=== PATIENT | male | born 1965 | race Caucasian/White ===

== ENCOUNTER → 2023-02-17 11:08 | Outpatient (CLI) | payer BC, SELFPAY | PROVIDERS: PCP Nurse Practitioner Family; Visit Provider Specialist | DX: G47.00 Insomnia, unspecified (principal) | CPT/HCPCS: 94762 ==

== ENCOUNTER → 2023-03-04 14:40 | Outpatient (CLI) | payer BC, SELFPAY | PROVIDERS: PCP Family Medicine; Visit Provider Specialist | DX: G47.33 Obstructive sleep apnea (adult) (pediatric) (principal) | CPT/HCPCS: G0399 ==

== ENCOUNTER → 2023-03-23 11:00 | Outpatient (CLI) | payer BC, SELFPAY ==
[2023-03-23 14:18] LABS: Basophils % 0.4 % (0.1-2.0); Eosinophils # 0.1 K/mm3 (0.0-0.4); Eosinophils % 0.9 % (0.1-12.0); Hematocrit 47.3 % (42.0-52.0); Lymphocytes # 1.4 K/mm3 (0.7-4.5); Lymphocytes % 17.1 % (10-50); Mean Corpuscular HGB Conc 33.7 g/dL (31.8-35.4); Mean Corpuscular Hemoglobin 29.2 pg (27.0-31.2); Mean Corpuscular Volume 86.4 fl (80-94); Mean Platelet Volume 8.8 fl (7.4-10.4); Monocytes # 0.5 K/mm3 (0.1-1.0); Monocytes % 5.5 % (1.7-9.3); Neutrophils # 6.3 K/mm3 (1.8-7.8); Neutrophils % 76.2 % (37.0-80.0); Platelet Count 200 K/mm3 (142-424); Red Blood Count 5.48 M/mm3 (4.60-6.20); Red Cell Distribution Width 14.6 % (11.5-17.5); White Blood Count 8.3 K/mm3 (4.8-10.8)
[2023-03-23 14:54] LABS: Alanine Aminotransferase 26 U/L (12-78); Albumin Level 4.2 g/dl (3.5-5.0); Anion Gap 12.5 mEq/L (5-15); Aspartate Amino Transferase 29 U/L (17-59); Bilirubin,Total 0.9 mg/dl (0.2-1.3); Blood Urea Nitrogen 17 mg/dl (9-20); Calcium 9.2 mg/dl (8.4-10.2); Carbon Dioxide 25 mmol/L (22.0-30.0); Chloride 104 mmol/L (98-107); Estimated Glomerular Filt Rate 99 ml/min (>60); GFR (African American) 120 ML/MIN (>60); Globulin 3.2 g/dL (1.3-3.2); Glucose 86 mg/dl (74-100); Potassium 4.5 mmoL/L (3.5-5.1); Sodium 137 mmol/L (136-145); Total Protein,Serum 7.4 g/dl (6.3-8.2)
[2023-03-23 14:55] LABS: Albumin/Globulin Ratio 1.3 (1.1-1.8); Alkaline Phosphatase 76 U/L (38-126); Chol/HDL Ratio 4.4 (1-3.5); Cholesterol 197 mg/dl (140-200); HDL Cholesterol 45 mg/dl (40-60); Triglycerides 77 mg/dl (30-150); VLDL Cholesterol 15 mg/dL (0-40)
[2023-03-23 15:05] LABS: Direct LDL Cholesterol 126.08 mg/dL (100-129)
[2023-03-23 15:10] LABS: 25-OH Vitamin D, Total 16.9 ng/mL (30-100)
[2023-03-23 15:25] LABS: Thyroid Stimulating Hormone 0.59 uIU/mL (0.465-4.68)
[2023-03-23 15:41] LABS: Erythrocyte Sedimentation Rate 8 mm/hr (0-20)
[2023-03-23 16:31] LABS: Hemoglobin A1C 6.2 % (4.0-6.0)
== END ==
PROVIDERS: PCP Emergency Medicine; Visit Provider Emergency Medicine
DX: E11.9 Type 2 diabetes mellitus without complications (principal); E55.9 Vitamin D deficiency, unspecified; I10 Essential (primary) hypertension; Z79.4 Long term (current) use of insulin; Z79.899 Other long term (current) drug therapy
CPT/HCPCS: 80053; 80061; 82306; 83036; 84439; 84443; 85025; 85651

== ENCOUNTER → 2023-03-23 11:27 | Outpatient (CLI) | payer BC, SELFPAY | PROVIDERS: PCP Emergency Medicine; Visit Provider Emergency Medicine | DX: E55.9 Vitamin D deficiency, unspecified (principal) ==

== ENCOUNTER → 2023-08-04 23:56 | Outpatient (CLI) | payer BC, SELFPAY ==
[2023-08-04 19:14] LABS: Alanine Aminotransferase 28 U/L (12-78); Albumin Level 3.7 g/dl (3.5-5.0); Albumin/Globulin Ratio 1.2 (1.1-1.8); Alkaline Phosphatase 92 U/L (38-126); Anion Gap 13.1 mEq/L (5-15); Aspartate Amino Transferase 27 U/L (17-59); Bilirubin,Total 0.5 mg/dl (0.2-1.3); Blood Urea Nitrogen 15 mg/dl (9-20); Calcium 9.2 mg/dl (8.4-10.2); Carbon Dioxide 26 mmol/L (22.0-30.0); Chloride 104 mmol/L (98-107); Estimated Glomerular Filt Rate 116 ml/min (>60); GFR (African American) 140 ML/MIN (>60); Globulin 3.2 g/dL (1.3-3.2); Glucose 75 mg/dl (74-100); Potassium 4.1 mmoL/L (3.5-5.1); Sodium 139 mmol/L (136-145); Total Protein,Serum 6.9 g/dl (6.3-8.2)
[2023-08-04 19:48] LABS: Basophils % 0.4 % (0.1-2.0); Eosinophils # 0.2 K/mm3 (0.0-0.4); Eosinophils % 2.7 % (0.1-12.0); Hematocrit 48.5 % (42.0-52.0); Hemoglobin 15.6 g/dL (14.1-18.0); Lymphocytes # 2.2 K/mm3 (0.7-4.5); Lymphocytes % 27.9 % (10-50); Mean Corpuscular HGB Conc 32.1 g/dL (31.8-35.4); Mean Corpuscular Hemoglobin 28.4 pg (27.0-31.2); Mean Corpuscular Volume 88.4 fl (80-94); Mean Platelet Volume 9.4 fl (7.4-10.4); Monocytes # 0.5 K/mm3 (0.1-1.0); Monocytes % 6.3 % (1.7-9.3); Neutrophils % 62.8 % (37.0-80.0); Platelet Count 165 K/mm3 (142-424); Red Blood Count 5.48 M/mm3 (4.60-6.20); Red Cell Distribution Width 14.4 % (11.5-17.5); White Blood Count 7.9 K/mm3 (4.8-10.8)
[2023-08-05 10:58] LABS: Hemoglobin A1C 5.7 % (4.0-6.0)
== END ==
PROVIDERS: PCP Family Medicine; Visit Provider Family Medicine
DX: E11.9 Type 2 diabetes mellitus without complications (principal); Z79.4 Long term (current) use of insulin
CPT/HCPCS: 80053; 83036; 85025

== ENCOUNTER 2023-08-24 10:23 | Day surgery (SDC) | payer BC, SELFPAY ==
[2023-08-19 12:43] VITALS: BMI 28.7
--- NOTE | 2023-08-19 12:46 | SUR.PREOP ---
Instructed by pt to call his sister, Jeanette Major, for the pre-op phone call. spoke with sister and had lots of questions and confusion about the procedure and prep, said didn't have a prep or any written instructions. Described and explained in detail how to take prep and dietary restrictions. Pt takes Eloquis and had not been instructed by MD when/if to stop. Instructed sister to call prescribing MD- Dr. Newell- to ask when should hold medication, verbalized understanding. TC to MO in Dr. Justin's office to call in prep for pt.
[2023-08-24 10:42] VITALS: BP 147/90; PULSE 62; RESP 18; TEMP 36.2; O2SAT 98
[2023-08-24 10:55] LABS: POC Glucose,Bedside 91 (70-110)
--- NOTE | 2023-08-24 10:57 | EXP.ANES.CKL ---
[facility] Disclaimer: The information contained in this section may have been updated after the patient was seen, as this information can be updated by other users. Medical History Anxiety Depression Diabetes Sleep apnea Surgical History (Updated 08/24/23 @ 10:41 by John Viramontes RN) No history of previous surgery Family History Other Cancer Social History Smoking Status: Never smoker alcohol intake: never substance use type: denies use current occupational status: employed and retired Travel in the last 8 weeks: None housing: house marital status: single [facility] Anesthesia Checklist Patient Identification Patient Identification: Arm Band Structural Data Admitted From: Home Planned Operative Procedure/s: Colonoscopy Consent for Planned Operative Procedure(s) Verified: Yes Verified Documents: Surgical Consent and History and Physical NPO Status Verified Time NPO: 00:00 Additional verifications Anesthesia Reactions: No Airway Assessment Mallampati Score:: Class II C-Spine Mobility Assessed: Yes TMJ Mobility Assessed: Yes Dentition: Good Dentition Neurological Assessment Level of Consciousness: Awake and Alert Anesthesia Plan Anesthesia Risk discussed: Yes Anesthesia Plan: Verified ASA Class: III Anesthesia Type: MAC
[2023-08-24 11:50] VITALS: BP 124/73; PULSE 67; RESP 17; TEMP 36.2; O2SAT 94
--- NOTE | 2023-08-24 11:59 | HMH.SCOPE ---
Procedure: Date: 08/24/23 Patient Date of :: 1965 Procedure Performed:: Colonoscopy with polypectomy Indications:: Screening Performing Provider:: Scotty Justin MD Referring Provider:: . Sedation:: Monitored anesthesia care Procedure:: After informed consent was obtained the patient was taken to the endoscopy suite. Sedation ensued after the patient was transferred to the left lateral decubitus position. Pulse, blood pressure, and oxygen saturation were monitored throughout the procedure. Digital rectal exam revealed no significant abnormality. The colonoscope was placed in position. The entire colon was evaluated. The colonoscope was carefully removed and the patient was transferred to recovery in stable condition. Please see findings and specimens below for detail. Findings:: Bowel preparation moderate Sigmoid diverticulosis Complex polyps (see specimens) Specimens:: Large lobulated sessile polyp at 65 cm (hot snare and tattoo) Polyp at 35 cm (hot snare) Perianal margin polyps versus lobulated tags (multiple biopsies via cold biopsy forceps) Recommendations:: Follow-up pathology Repeat colonoscopy timing pending results of pathology but likely be around 3-6 months for reevaluation of complex polyp/tattoo site. Complications:: No immediate Estimated blood obtained (mL): 1 Colonoscopy Component Colonoscopy Component Was a colonoscopy performed during today's procedure?: Yes Recommended follow up colonoscopy of at least 10 years?: No If no, follow up colonoscopy recommended in ___ years?: (See above) Reason for not recommending >/= 10 yr follow-up interval?: (See above)
[2023-08-24 12:00] VITALS: BP 130/78; PULSE 69; RESP 19; O2SAT 96
[2023-08-24 12:10] VITALS: BP 136/82; PULSE 59; RESP 17; O2SAT 96
[2023-08-24 12:20] VITALS: BP 127/82; PULSE 59; RESP 17; O2SAT 98
== END 2023-08-24 12:30 | disposition home or self-care (01) ==
PROVIDERS: PCP Family Medicine; Visit Provider Surgery
PROC: 0DJD8ZZ Inspection of Lower Intestinal Tract, Via Natural or Artificial Opening Endoscopic (ICD-10-PCS; CPT 45385; principal; 2023-08-24 11:30)
DX: Z12.11 Encounter for screening for malignant neoplasm of colon (principal); K57.30 Diverticulosis of large intestine without perforation or abscess without bleeding; D12.4 Benign neoplasm of descending colon; D12.5 Benign neoplasm of sigmoid colon; K62.89 Other specified diseases of anus and rectum; E11.9 Type 2 diabetes mellitus without complications
CPT/HCPCS: 45385; 45380; 82962; J2704

== ENCOUNTER 2024-03-17 10:26 | Outpatient (CLI) | payer BC, SELFPAY ==
[2024-03-17 18:44] LABS: Alanine Aminotransferase 40 U/L (12-78); Albumin Level 3.1 g/dl (3.5-5.0); Albumin/Globulin Ratio 0.9 (1.1-1.8); Alkaline Phosphatase 84 U/L (38-126); Anion Gap 11.9 mEq/L (5-15); Aspartate Amino Transferase 34 U/L (17-59); Bilirubin,Total 1.2 mg/dl (0.2-1.3); Blood Urea Nitrogen 21 mg/dl (9-20); Calcium 8.8 mg/dl (8.4-10.2); Carbon Dioxide 25 mmol/L (22.0-30.0); Chloride 105 mmol/L (98-107); Chol/HDL Ratio 5.5 (1-3.5); Cholesterol 131 mg/dl (140-200); Estimated Glomerular Filt Rate 76 ml/min (>60); GFR (African American) 93 ML/MIN (>60); Globulin 3.3 g/dL (1.3-3.2); Glucose 125 mg/dl (74-100); HDL Cholesterol 24 mg/dl (40-60); Potassium 3.9 mmoL/L (3.5-5.1); Sodium 138 mmol/L (136-145); Total Protein,Serum 6.4 g/dl (6.3-8.2); Triglycerides 87 mg/dl (30-150); VLDL Cholesterol 17 mg/dL (0-40)
[2024-03-17 19:19] LABS: Prostate Specific Ag Screen 0.4 ng/ml (0.0-4.0); Thyroid Stimulating Hormone 0.28 uIU/mL (0.465-4.68)
[2024-03-17 19:51] LABS: Direct LDL Cholesterol 85.01 mg/dL (100-129)
== END 2024-03-17 23:59 | disposition home or self-care (01) ==
LOC: LAB.DROPOF 03-20 10:27
PROVIDERS: PCP Family Medicine; Visit Provider Family Medicine
DX: I10 Essential (primary) hypertension (principal); M79.604 Pain in right leg; Z12.5 Encounter for screening for malignant neoplasm of prostate; E11.9 Type 2 diabetes mellitus without complications; E66.9 Obesity, unspecified; Z68.31 Body mass index [BMI] 31.0-31.9, adult; Z79.4 Long term (current) use of insulin; Z79.84 Long term (current) use of oral hypoglycemic drugs; Z79.85 Long-term (current) use of injectable non-insulin antidiabetic drugs
CPT/HCPCS: 80053; 80061; 83036; 84443; G0103

== ENCOUNTER 2025-04-02 11:15 | Outpatient (CLI) | payer MEDICAID, SELFPAY ==
[2025-04-02 18:23] LABS: Basophils % 0.5 % (0.1-2.0); Eosinophils # 0.2 Kmm3 (0.0-0.4); Eosinophils % 1.7 % (0.1-12.0); Hematocrit 47.3 % (42.0-52.0); Hemoglobin 15.4 g/dL (14.1-18.0); Lymphocytes # 1.6 K/mm3 (0.7-4.5); Mean Corpuscular HGB Conc 32.6 g/dL (31.8-35.4); Mean Corpuscular Hemoglobin 28.2 pg (27.0-31.2); Mean Corpuscular Volume 86.6 fl (80-94); Mean Platelet Volume 12.2 fl (7.4-10.4); Monocytes # 0.6 K/mm3 (0.1-1.0); Neutrophils # 6.3 K/mm3 (1.8-7.8); Neutrophils % 72.3 % (37.0-80.0); Nucleated Red Blood Cells # 0 10^3/uL; Nucleated Red Blood Cells % 0 %; Platelet Count 170 K/mm3 (142-424); Red Blood Count 5.46 M/mm3 (4.60-6.20); Red Cell Distribution Width 13.4 % (11.5-17.5); Red Cell Distribution Width-SD 41.9 fL; White Blood Count 8.7 K/mm3 (4.8-10.8)
[2025-04-02 20:20] LABS: Alanine Aminotransferase 23 U/L (12-78); Albumin Level 3.8 g/dl (3.5-5.0); Albumin/Globulin Ratio 1.3 (1.1-1.8); Alkaline Phosphatase 109 U/L (38-126); Anion Gap 10.1 mEq/L (5-15); Aspartate Amino Transferase 22 U/L (17-59); Bilirubin,Total 0.6 mg/dl (0.2-1.3); Blood Urea Nitrogen 23 mg/dl (9-20); Calcium 9.3 mg/dl (8.4-10.2); Carbon Dioxide 26 mmol/L (22.0-30.0); Chloride 104 mmol/L (98-107); Chol/HDL Ratio 5.1 (1-3.5); Cholesterol 162 mg/dl (140-200); Estimated Glomerular Filt Rate 68 ml/min (>60); GFR (African American) 83 ML/MIN (>60); HDL Cholesterol 32 mg/dl (40-60); Potassium 5.1 mmoL/L (3.5-5.1); Sodium 135 mmol/L (136-145); Total Protein,Serum 6.8 g/dl (6.3-8.2)
[2025-04-02 20:32] LABS: Direct LDL Cholesterol 53.93 mg/dL (100-129); Triglycerides 470 mg/dl (30-150)
[2025-04-02 20:51] LABS: Thyroid Stimulating Hormone 1.02 uIU/mL (0.465-4.68)
[2025-04-02 21:18] LABS: Glucose 489 mg/dl (74-100)
== END 2025-04-02 23:59 | disposition home or self-care (01) ==
LOC: LAB.DROPOF 04-03 09:08
PROVIDERS: PCP Family Medicine; Visit Provider Family Medicine
DX: I10 Essential (primary) hypertension (principal); E11.9 Type 2 diabetes mellitus without complications
CPT/HCPCS: 80053; 80061; 84443; 85025

== ENCOUNTER 2025-07-02 15:15 | Outpatient (CLI) | payer MEDICAID, SELFPAY ==
[2025-07-02 15:40] LABS: Hematocrit 48.4 % (42.0-52.0); Hemoglobin 16.2 g/dL (14.1-18.0); Immature Granulocytes % 0.3 %; Mean Corpuscular HGB Conc 33.5 g/dL (31.8-35.4); Mean Corpuscular Hemoglobin 27.9 pg (27.0-31.2); Mean Corpuscular Volume 83.3 fl (80-94); Nucleated Red Blood Cells % 0 %; Platelet Count 189 K/mm3 (142-424); Red Blood Count 5.81 M/mm3 (4.60-6.20); Red Cell Distribution Width-SD 40.3 fL; White Blood Count 9.4 K/mm3 (4.8-10.8)
[2025-07-02 16:38] LABS: Alanine Aminotransferase 27 U/L (12-78); Albumin Level 4.1 g/dl (3.5-5.0); Albumin/Globulin Ratio 1.3 (1.1-1.8); Alkaline Phosphatase 118 U/L (38-126); Anion Gap 15.3 mEq/L (5-15); Aspartate Amino Transferase 30 U/L (17-59); Bilirubin,Total 0.8 mg/dl (0.2-1.3); Blood Urea Nitrogen 30 mg/dl (9-20); Calcium 9.6 mg/dl (8.4-10.2); Carbon Dioxide 25 mmol/L (22.0-30.0); Chloride 94 mmol/L (98-107); Cholesterol 175 mg/dl (140-200); Creatinine,Serum 1.30 mg/dl (0.66-1.25); Estimated Glomerular Filt Rate 56 ml/min (>60); GFR (African American) 68 ML/MIN (>60); Globulin 3.2 g/dL (1.3-3.2); HDL Cholesterol 39 mg/dl (40-60); Potassium 4.3 mmoL/L (3.5-5.1); Sodium 130 mmol/L (136-145); Total Protein,Serum 7.3 g/dl (6.3-8.2); Triglycerides 362 mg/dl (30-150)
[2025-07-02 16:52] LABS: C-Reactive Protein 31.9 mg/L (0-4)
[2025-07-02 17:20] LABS: Glucose 621 mg/dl (74-100)
[2025-07-02 17:22] LABS: Hepatitis C Ab Qual. W/ RFX NEGATIVE (Negative)
[2025-07-03 08:12] LABS: Hepatitis B Surface Antigen Negative (Negative)
--- OUTSIDE RECORDS SUMMARY | 2025-07-03 12:33 | XMS_ITS | Clinical Summary ---
Author Organization [facility] Address [address] [place] [address] Phone Care Team Providers Care Business Supervisor Name Role Phone Nonstaff, Referring Primary Care Provider Unavai lable Allergies Active Allergy Reactions Criticality Noted Date Comments Lisinopril Other (See Comments) 03/29/2024 It made me loony Medications ALPRAZolam (XANAX) 2 mg Oral Tablet Active ELIQUIS 5 mg Oral Tablet TAKE ONE (1) TABLET TWICE A DAY BY ORAL ROUTE FOR 90 DAYS. Active doxepin (SINEQUAN) 10 mg Oral Capsule Take 25 mg by mouth nightly. PRN 3 Active TRULICITY 3 mg/0.5 mL SubQ Pen Injector INJECT THREE (3) MG EVERY WEEK BY SUBCUTANEOUS ROUTE FOR 90 DAYS. Active pantoprazole (PROTONIX) 40 mg Oral Tablet, Delayed Release (E.C.) Take 40 mg by mouth daily. PRN 4 Active BD ULTRA-FINE SHORT PEN NEEDLE 31 gauge x 5/16 Misc Needle DIRECTED EVERY DAY *100 DAY SUPPLY* 3 Active Melatonin 3 mg Oral Tablet Take 3 mg by mouth nightly. Active traMADoL (ULTRAM) 50 mg Oral Tablet Take 1-2 Tablets by mouth every 6 hours as needed for Pain. 20 Tablet 04/01/2024 12:16 PM EDT 4 Active LANTUS SOLOSTAR U-100 INSULIN 100 unit/mL (3 mL) SubQ Insulin Pen Subcutaneous (Inject under the skin) 22 Units every evening. 4 Active tamsulosin (FLOMAX) 0.4 mg Oral Capsule Take 0.4 mg by mouth daily. Active torsemide (DEMADEX) 20 mg Oral Tablet Take 1 Tablet by mouth as needed (for weight gain >=3 lb overnight or >= 5 lb in 5-7 days). 90 Tablet 1 4 Active metoprolol succinate (TOPROL-XL) 50 mg Oral Tablet Sustained Release 24 hrIndications:HF rEF (heart failure with reduced ejection fraction) ([facility]),NICM (nonischemic cardiomyopathy) ([facility]),Permanent atrial fibrillation ([facility]),NSVT (nonsustained ventricular tachycardia) ([facility]),Primary hypertension Take 1 Tablet by mouth every morning AND 2 Tablets nightly. 270 Tablet 4 Active spironolactone (ALDACTONE) 25 mg Oral Tablet Take 1 Tablet by mouth daily. 90 Tablet 4 Active ENTRESTO 97-103 mg Oral Tablet TAKE ONE (1) TABLET BY MOUTH TWO (2) TIMES DAILY. 60 Tablet 3 5 Active amiodarone (PACERONE) 200 mg Oral Tablet TAKE ONE (1) TABLET BY MOUTH DAILY 270 Tablet 5 Active Active Problems Patient Care Coordination No te Formatting of this note migh t be different from the original. Care gap audit completed by Ewa Santana RN on 10/06/2022. Problem Noted Date Diagnosed Date Elevated troponin 06/07/2024 Non compliance w medication regimen 06/07/2024 NSTEMI (non-ST elevated myocardial infarction) 0 06/07/2024 Status post cardiac catheterization 06/07/2024 Kidney stones 03/29/2024 Calculus of ureter 02/28/2024 Ureterolithiasis 02/24/2024 Acute kidney injury superimposed on CKD 02/24/20 Complicated UTI (urinary tract infection) 2023 Chronic combined systolic an d diastolic congestive heart failure 02/24/2024 ANA (obstructive sleep apnea) 02/24/2024 Biventricular ICD (implantab le cardioverter-defibrillator) in place 02/10/2024 Overview (02/10/2024): ABT BiV ICD 02/10/24 Dr. 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 Butcher NSVT (nonsustained ventricular tachycardia) 01/27 Pneumonia of right upper lobe due to infectious organism 02/09/2024 HFrEF (heart failure with reduced ejection fract ion) 02/09/2024 Obesity, Class II, BMI 35-39.9 02/08/2024 Pneumonia of right lower lobe due to infectious organism 02/07/2024 Persistent atrial fibrillation 02/07/2024 Renal stones 01/24/2024 Mixed anxiety and depressive disorder 12/28/2022 Atrial fibrillation with RVR 10/30/2019 Hypertensive disorder 07/16/2017 Type 2 diabetes mellitus without complication Overview (09/01/2023): Removal Reason: duplicate Surgical History Surgery Date Site/Laterality Comments CARDIAC DEFIBRILLATOR PLACEMENT 02/10/2024 ABT Bi-V ICD, Dr. Butcher CYSTOSCOPY 02/24/2024 Left CYSTOSCOPY LEFT STENT INSERTION, urethral dilation, left retrograde pyelogram; Surgeon: Jass Gregg MD; Location: [facility]; Service: Urology Medical devices from this surgery are in the Medical Devices section. CYSTOSCOPY 02/24/2024 Surgeon: Jass Gregg MD; Location: [facility]; Service: Urology Medical devices from this surgery are in the Medical Devices section. CYSTOSCOPY 02/24/2024 Surgeon: Jass Gregg MD; Location: [facility]; Service: Urology Medical devices from this surgery are in the Medical Devices section. COLONOSCOPY CYSTOSCOPY 03/29/2024 Surgeon: Nhan Castillo MD; Location: [facility]; Service: Urology Medical devices from this surgery are in the Medical Devices section. 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 (HCC) 02/10/2024 S/P AV node ablation Pneumonia 02/07/24 Shortness of breath Sleep apnea Bipap setting un known Cardiac dysrhythmia Pacemaker Hypertension Diabetes mellitus (HCC) Urinary tract infection Depression anxiety Anesthesia during a procedu re in [place] his BP dropped [place] (myocardial infarction) (HCC) Kidney stones Family History Medical History Relation Name Comments Lung Cancer Mother Anesth Problems Neg Hx Relation Name Status Comments Mother Social History Tobacco Use Types Packs/Day Years Used Date Smoking Tobacco: Never Smokeless Tobacco: Never Tobacco Cessation:Counseling Given: Not Answered Alcohol Use Standard Drinks/Week Comments Never 0 (1 standard drink = 0.6 oz pur e alcohol) [facility] Utilities Answer Date Recorded In the past 12 months has th e electric, gas, oil, or water company threatened to shut off services in your home? No 03/30/2024 Overall Financial Resource Strain (CARDIA) Answe r Date Recorded How hard is it for you to pa y for the very basics like food, housing, medical care, and heating? Not hard at all 03/30/2024 PHQ-2 Answer Date Recorded PHQ-2 Total Score 0 03/30/2024 [facility] - Occupational Stress Questionnaire Answer Date Recorded Do you feel stress - tense, restless, nervous, or anxious, or unable to sleep at night because your mind is troubled all the time - these days? Not at all 03/30/2024 Exercise Vital Sign Answer Date Recorde d On average, how many days pe r week do you engage in moderate to strenuous exercise (like a brisk walk)? 2 days 03/30/2024 On average, how many minutes do you engage in exercise at this level? 20 min 03/30/2024 Hunger Vital Sign Answer Date Recorded Within the past 12 months, y ou worried that your food would run out before you got the money to buy more. Never true 03/30/20 24 Within the past 12 months, t he food you bought just didn't last and you didn't have money to get more. Never true 03/30/2024 [facility] Transportation Answer D ate Recorded In the past 12 months, has l ack of reliable transportation kept you from medical appointments, meetings, work or from getting things needed for daily living? No 03/30/2024 Sex and Gender Information Value Date Recorded Sex Assigned at Not on file Legal Sex Male 1:54 PM EST Gender Identity Not on file Sexual Orientation Not on file Obstetrics History Last Filed Vital Signs Vital Sign Reading Time Taken Comments Blood Pressure 109/79 08/09/2024 7:59 AM EDT Pulse 76 08/09/2024 7:59 AM EDT Temperature 37.2 C (99 F) 04/14/2024 10:35 AM EDT Respiratory Rate 16 04/14/2024 10:50 AM EDT Oxygen Saturation 99% 08/09/2024 7:59 AM EDT Inhaled Oxygen Concentration - - Weight 114.3 kg (252 lb) 08/09/2024 7:59 AM EDT Height 180.3 cm (5' 11 ) 04/14/2024 7:23 AM EDT Body Mass Index 35.15 04/14/2024 7:23 AM EDT Plan of Treatment Upcoming Encounters Date Type Department Care Team (Late st Contact Info) Description 08/13/2025 3:00 PM EDT Office Visit [facility] [address] [place] [address] [place] [phone] 08/13/2025 3:30 PM EDT Office Visit [facility] [address] [facility] [address] [place] [address] Aysha Butcher MD [address] [place] [address] Health Maintenance Due Date Last Done Comments Annual Wellness Exam 1968 Lipids 1975 Diabetic Eye Exam 1983 Hepatitis C Screening 1983 Kidney Health: uACR 1983 Cologuard 2010 Colon Cancer Screening 2010 Colonoscopy 2010 FIT 2010 Sigmoidoscopy 2010 Virtual Colonography 2010 Zoster (1 of 2) 2015 COVID-19 Vaccine ( season) 2024 08/27/2021, 07/30/2021 Hemoglobin A1c 08/27/2024 02/25/2024 RSV or 60+ (1 - Risk 60-74 years 1-dose series) 2025 Influenza Vaccine (#1) 2025 08/27/2020, 2016 Kidney Health: eGFR 08/09/2025 08/09/2024, 06/07/2024, 04/01/2024, Additional history exists Pneumococcal Vaccine 50+ (3 of 3 - PCV20 or PCV21) 12/03/2025 12/03/2020, 09/30/2015 DTaP/TDaP/Td (4 - Td or Tdap) 01/25/2028 01/25/2018, 01/19/2018, 09/13/2009 Hepatitis B Vaccine Aged Out 08/06/2016, 01/27/2016, 09/30/2015 No longer eligible based on patient's age to complete this topic Meningococcal B Vaccine Aged Out No l onger eligible based on patient's age to complete this topic Medical Devices Implanted Type Area Brusher Machine Device Identifier Shelf Expiration Date Model / Serial / Lot Defibrillator [employer] Clerk-D - [id number] Implanted:Qty: 1 on 02/10/2024 by Aysha Butcher MD at [facility] BELT PUNCHER-D ICD MARIE LAB:VASC DEV [id number] 11/28/2025 [id number] / [id number] / Description:VT 1 148 bpm VT 2 160 bpm-ATP x3 VF 181 bpm-ATP x1 Lead Pcng 62cm Sprnt Qutro Scur S Impl Triplr Av Sgl Coil Lf - [id number] Implanted:Qty: 1 on 02/10/2024 by Aysha Butcher MD at [facility] Lead [employer]:PACING SYS [id number] 11/09/2025 [id number] / [id number] / Lead Pcng [id number] Spc 86cm Qrtt Impl Unipl Styp Crv Lt - [id number] Implanted:Qty: 1 on 02/10/2024 by Aysha Butcher MD at [facility] Lead [place] MED:CARDIAC RHYM MGMT [id number] 11/28/2026 1456Q/86 / [id number] / Explanted Type Area Brusher Machine Device Identifier Shelf Expiration Date Model / Serial / Lot Stent Uret [id number] Contr Dbl Pig Tapr Lpro Percuflx Cath - [id number] Implanted:Qty : 1 on 02/24/2024 by Jass Gregg MD at [facility] Explanted:Qty : 1 on 03/29/2024 by Nhan Castillo MD at [facility] Stent Left: Ureter [place] SCI:MICROVASIVE: UROLOGY [id number] 10/17/2026 [id number] Procedures Procedure Name Priority Date/Time Associated Diagnosis Comments BASIC METABOLIC PANEL Routine 08/09/2024 9:07 AM EDT HFrEF (heart failure with reduced ejection fraction) (HCC) NICM (nonischemic cardiomyopathy) (HCC) HEMOGLOBIN A1C Early AM 02/25/2024 7:04 AM EDT from Last 3 Months or Most Recently Relevant to Health Maintenance Results * (ABNORMAL) BASIC METABOLIC PANEL (08/09/2024 9:07 AM EDT) Sodium 137 136 - 145 mmol/L 08/09/2024 3:06 PM EDT [facility] Potassium 4.8 3.5 - 5.0 mmol/L 08/09/2024 3:06 PM EDT [facility] Chloride 102 98 - 107 mmol/L 08/09/2024 3:06 PM EDT [facility] Total CO2 25 22 - 29 mmol/L 08/09/2024 3:06 PM EDT [facility] Anion Gap 10 7 - 16 mmol/L 08/09/2024 3:06 PM EDT [facility] Calcium 9.3 8.6 - 10.4 mg/dL 08/09/2024 3:06 PM EDT [facility] Glucose Lvl 204(H) 70 - 99 mg/dL 08/09/2024 3:06 PM EDT [facility] BUN 24(H) 6 - 20 mg/dL 08/09/2024 3:06 PM EDT [facility] Creatinine 1.16 0.67 - 1.30 mg/dL 08/09/2024 3:06 PM EDT [facility] eGFR (CKD-EPIcr 2020) 73 >=60 mL/min/1.7 3 m2 08/09/2024 3:06 PM EDT [facility] Comment:Estimated GFR was ca lculated using the CKD-EPIcr (2020) equation refit without race. The equation is recommended by the National Kidney Foundation - [place] Society of Nephrology Task Force. Blood VENOUS BLOOD / Unknown Venipuncture / Unknown 08/09/2024 9:07 AM EDT 08/09/2024 9:07 AM EDT us Josafat Corral NP CHEMISTRY ORDERABLES Ashley l Result Performing Organization Address [facility]/ZIP Co de Phone Number [employer] [address] , [place] [address] [facility] [address] [place], [place] [id number] * (ABNORMAL) HEMOGLOBIN A1C (02/25/2024 7:04 AM EDT) Hgb A1C 9.7(H) 4.2 - 5.6 % 02/25/2024 7:57 AM EDT [facility] [employer]. Avg Glucose 232 mg/dL 02/25/2024 7:57 AM EDT [facility] Blood VENOUS BLOOD / Unknown Venipuncture / Unknown 02/25/2024 7:04 AM EDT 02/25/2024 7:25 AM EDT Narrative [employer] [facility] - 02/25/2024 7:57 AM EDT REFERENCE RANGE: Normal: 4.0-5.6% Pre-diabetes: 5.7-6.4% Provisional diagnosis of diabetes: >6.4% Hgb F>10% and anything which shortens red cell survival, such as hemolytic anemia, or unstable hemoglobin variants such as HbSS, HbSC, or HbCC, will lower the HbA1c value associated with a given level of glycemic control. us Jass Gregg MD CHEMISTRY ORDERABLES Final Result Performing Organization Address [facility]/ZIP Co de Phone Number [employer] [address] [place] [address] , [address] [place] [id number] from Last 3 Months or Most Recently Relevant to Health Maintenance Insurance MDR Advance Directives For more information, please contact: [phone] * Full Code (Latest Code Status on File) Date Activated Date Inactivated Comments 03/30/2024 11:22 AM 04/01/2024 7:55 PM * Full Code Date Activated Date Inactivated Comments 02/24/2024 2:59 AM 02/25/2024 4:26 PM * Full Code Date Activated Date Inactivated Comments 02/07/2024 10:19 PM 02/11/2024 6:54 PM Care Teams Business Supervisor Relationship Specialty Start Date End Date Nonstaff, Referring PCP - General 02/09/24
== END 2025-07-02 23:59 | disposition home or self-care (01) ==
PROVIDERS: Family Medicine; PCP Podiatrist; Visit Provider Podiatrist
DX: S90.812A Abrasion, left foot, initial encounter (principal); Z11.59 Encounter for screening for other viral diseases; I10 Essential (primary) hypertension; I48.91 Unspecified atrial fibrillation; E11.621 Type 2 diabetes mellitus with foot ulcer; L97.519 Non-pressure chronic ulcer of other part of right foot with unspecified severity
CPT/HCPCS: 80053; 80061; 85025; 85651; 86140; 86803; 87070; 87077; 87205; 87340; 87389

== ENCOUNTER 2025-07-05 07:31 | Outpatient (CLI) | payer MEDICAID, SELFPAY ==
--- OUTSIDE RECORDS SUMMARY | 2025-07-05 07:33 | XMS_ITS | Clinical Summary ---
Author Organization [facility] Address [address] [place] [address] Phone Care Team Providers Care Cover Creaser Name Role Phone Nonstaff, Referring Primary Care [...] rEF (heart failure with reduced ejection fraction) ([facility]),NICM (nonischemic cardiomyopathy) ([facility]),Permanent atrial fibrillation ([facility]),NSVT (nonsustained ventricular tachycardia) ([facility]),Primary hypertension Take 1 Tablet by mouth every [...] anxiety Anesthesia during a procedu re in [place] his BP dropped [place] (myocardial infarction) (HCC) Kidney stones Family History Medical History Relation Name Comments Lung Cancer Mother Anesth Problems Neg Hx Relation Name Status Comments Mother Social History Tobacco Use Types Packs/Day Years Used Date Smoking Tobacco: Never Smokeless Tobacco: Never Tobacco Cessation:Counseling Given: Not Answered Alcohol Use Standard Drinks/Week Comments Never 0 (1 standard drink = 0.6 oz pur e alcohol) [facility] Utilities Answer Date Recorded In the [...] Date Recorded PHQ-2 Total Score 0 03/30/2024 [facility] - Occupational [...] money to get more. Never true 03/30/2024 [facility] IP Transportation Answer D ate Recorded In [...] EDT Office Visit [facility] [address] [place] [address] [place] [address] 08/13/2025 3:30 PM EDT Office Visit [facility] [address] [facility] [address] [place] [address] Aysha Butcher MD [address] [place] [address] Health Maintenance Due Date Last Done [...] this topic Medical Devices Implanted Type Area Acid Conditioner Device Identifier Shelf Expiration Date Model / Serial / Lot Defibrillator [employer] Vehicle Assembler-D - [id number] Implanted:Qty: 1 on 02/10/2024 by Aysha Butcher MD at [facility] FURNITURE ASSEMBLER AND INSTALLER-D ICD MARIE LAB:VASC DEV [id number] 11/28/2025 [id number] / [id number] / Description:VT 1 148 bpm VT 2 160 bpm-ATP x3 VF 181 bpm-ATP x1 Lead Pcng 62cm Sprnt Qutro Scur S Impl Triplr Av Sgl Coil Lf - [id number] Implanted:Qty: 1 on 02/10/2024 by Aysha Butcher MD at [facility] Lead [employer]:PACING SYS [id number] 11/09/2025 [id number] / [id number] / Lead Pcng [id number] Spc 86cm Qrtt Impl Unipl Styp Crv Lt - [id number] Implanted:Qty: 1 on 02/10/2024 by Aysha Butcher MD at [facility] Lead [employer] MED:CARDIAC RHYM MGMT [id number] 11/28/2026 1456Q/86 / [id number] / Explanted Type Area Acid Conditioner Device Identifier Shelf Expiration Date Model / Serial / Lot Stent Uret [id number] Contr Dbl Pig Tapr Lpro Percuflx Cath - [id number] Implanted:Qty : 1 on 02/24/2024 by Jass Gregg MD at [facility] Explanted:Qty : 1 on 03/29/2024 by Nhan Castillo MD at [facility] Stent Left: Ureter [employer] SCI:MICROVASIVE: UROLOGY [id number] 10/17/2026 [id number] Procedures Procedure Name Priority Date/Time Associated Diagnosis [...] mL/min/1.7 3 m2 08/09/2024 3:06 PM EDT [facility] Comment:Estimated GFR was ca lculated using the CKD-EPIcr (2020) equation refit without race. The equation is recommended by the National Kidney Foundation - [place] Society of Nephrology Task Force. Blood VENOUS BLOOD / Unknown Venipuncture / Unknown 08/09/2024 9:07 AM EDT 08/09/2024 9:07 AM EDT us Josafat Corral NP CHEMISTRY ORDERABLES Ashley l Result Performing Organization Address [facility]/ZIP Co de Phone Number [employer] [address] , [place] [address] [facility] [address] [place], [place] [phone] * (ABNORMAL) HEMOGLOBIN A1C (02/25/2024 7:04 AM EDT) Hgb A1C 9.7(H) 4.2 - 5.6 % 02/25/2024 7:57 AM EDT [facility] [employer] Est. Avg Glucose 232 mg/dL 02/25/2024 7:57 AM EDT [employer], [facility] Blood VENOUS BLOOD / Unknown Venipuncture / Unknown 02/25/2024 7:04 AM EDT 02/25/2024 7:25 AM EDT Narrative [employer] [facility] - 02/25/2024 7:57 AM EDT REFERENCE [...] CHEMISTRY ORDERABLES Final Result Performing Organization Address [facility]/ZIP Co de Phone Number [employer] [address] [place] [address] , [address] [place] [phone] from Last 3 Months or Most Recently Relevant to Health Maintenance Insurance MDR Advance Directives For more information, please contact: [phone] * Full Code (Latest Code Status on File) Date Activated Date Inactivated Comments 03/30/2024 11:22 AM 04/01/2024 7:55 PM * Full Code Date Activated Date Inactivated Comments 02/24/2024 2:59 AM 02/25/2024 4:26 PM * Full Code Date Activated Date Inactivated Comments 02/07/2024 10:19 PM 02/11/2024 6:54 PM Care Teams Cover Creaser Relationship Specialty Start Date End Date Nonstaff, Referring PCP - General 02/09/24
--- NOTE | 2025-07-05 08:00 | US_ITS ---
FINAL REPORT CLINICAL HISTORY: Evaluation for Decreased Pedal Pulses, ulcer right foot near great toe, HTN, DM, CAD, hx TN. FINDINGS: ANKLE-BRACHIAL PRESSURE INDICES Pressure indices are as follows: RIGHT LOWER EXTREMITY: Ankle-brachial pressure index: 1.41 Comments: Normal LEFT LOWER EXTREMITY: Ankle-brachial pressure index: Noncompressible Comments: Noncompressible IMPRESSION: No evidence of significant obstructive peripheral vascular disease of the right lower extremity with noncompressibility of the left lower extremity. Reviewed, Interpreted and Dictated by Umer Burnette MD Transcribed by Sosa Husain Authenticated and [facility]
== END 2025-07-05 23:59 | disposition home or self-care (01) ==
LOC: RT 07:32
PROVIDERS: PCP Family Medicine; Visit Provider Podiatrist
DX: E11.621 Type 2 diabetes mellitus with foot ulcer (principal); L97.519 Non-pressure chronic ulcer of other part of right foot with unspecified severity; I25.10 Atherosclerotic heart disease of native coronary artery without angina pectoris; I10 Essential (primary) hypertension; I25.2 Old myocardial infarction; R09.89 Other specified symptoms and signs involving the circulatory and respiratory systems
CPT/HCPCS: 93923